=== PATIENT | female | born 1965 | race Hispanic/Latino ===

== ENCOUNTER 2021-01-09 16:52 | Emergency (ER) | payer OTHER ==
--- OUTSIDE RECORDS SUMMARY | 2021-01-09 16:56 | XMS REPORT | Continuity of Care Document ---
:1965 Author Organization [facility] t Address [address] [place] [address] Care Team Providers Name Role Phone Unavailable Unavailable Unavailable Payers Payer Name Policy Type Policy Number Effective Date Expiration Date S ource Problems This patient has no known problems. Allergies, Adverse Reactions, Alerts Allergy Allergy Status Severity Reaction(s) Onset Inactive Treating Comm ents Source Name Type Date Date Clinician No Known DA Active U [facility] Allergie 5-21 Clear s 00:00: Cruz 00 [facility] Medications This patient has no known medications. Procedures This patient has no known procedures. Results Test Description Test Time Test Comments Results Result [facility] corinne Comments UTERUS,OTHER THAN 2020-03-25 PROLAPSE/SHALONDA 09:11:00 --------RUN DATE: 03/26/20 [facility] PAGE 1 RUN TIME: 1833 Specimen Inquiry RUN USER: INTERFACE --------PATIENT: HAI LAZO LOC: YASMIN #: [id number] AGE/SX: 54/F ROOM: [facility] RE03/20/20REG DR: Caron Santos MD : 67 BED: A DIS: 03/21/20 STATUS: DIS [place] TLOC: -------- SPEC #: [id number] RECD: 03/20/20 STATUS: SOUKelley RE #: [id number] GHADA: 03/20/20- SUBM DR: Caron Santos MD ENTERED: 03/21/20 SP TYPE: UTERUSOTH OTHR DR: ORDERED: LEVEL V SURGICA CODES: R55940 - UTERUS, NOS PROCEDURES: LEVEL V SURGICA (Incomplete) TISSUES: UTERUS, NOS - UTERUS, CERVIX AND BILATERAL FALLOPIAN TUBES CLINICAL HISTORY 54 year old, abnormal uterine bleeding (kr) FINAL DIAGNOSIS Uterus, hysterectomy, cervix - Nabothian cysts endometrium - benign endometrial polyp myometrium - leiomyomas (3) serosa - no pathologic diagnosis fallopian tubes, bilateral - hydrosalpinx CPT code(s): 23749 cds/kr GROSS DESCRIPTION ANATOMIC SOURCE OF TISSUE (per Requisition): Uterus, cervix, bilateral tubes The specimen is received in formalin, labeled with the patient's name and designated "uterus, cervix, bilateral tubes". The specimen consists of a 610 gm, 18.0 x 15.0 x 9.0 cm supracervically amputated fragmented uterus with a detached cervix and detached fallopian tubes (5.5 and 6.5 cm in length). The uterine serosa is fuchs-pink and nodular. There are no adhesions. The 4.0 cm ectocervix displays a central 1.5 cm slit-like os. The endometrial cavity displays a 3.0 x 2.0 x 1.3 cm polypoid lesion. The cut surfaces are fuchs and homogeneous. There are no areas of hemorrhage, necrosis, or myometrial involvement. The remainder of the endometrium is fuchs and focally hemorrhagic with a thickness measuring up to 0.2 cm. The myometrium is trabeculated with a wall thickness measuring up to 4.0 cm. There are three well-circumscribed nodules, 0.5 to 9.5 cm. The cut surfaces are fuchs and whorled. CONTINUED ON NEXT PAGE --------RUN DATE: 03/26/20 [facility] PAGE 2 RUN TIME: 1833 Specimen Inquiry RUN USER: INTERFACE --------SPEC #: [id number] PATIENT: HAI LAZO #[id number] (Continued) GROSS DESCRIPTION (Continued) The fallopian tubes are pink-purple and hyperemic with a few adhesions. There is no definite fimbriae. The lumens are dilated and contains blood-tinged viscous fluid. The cut surfaces of the fallopian tube pathak are fuchs, firm, and thickened. Section code: A1 - cervix A2 and A3 - entire polyp A4 - anterior endomyometrium A5 - posterior endomyometrium A6 - two smaller nodules and senior human resources representative sections of short segment of fallopian tube A7 - senior human resources representative sections of large nodule and serosa with senior human resources representative sections of long segment of fallopian tube manoj 03/21/20 Signed Luis Jaquez 03/25/20 0911 -------- END OF REPORT CHEMISTRY 7 PROFILE 2020-03-21 05:43:00 Test Item Value Reference Range Interpretation Comme nts SODIUM (test code = NA) 143 mEq/L 135-145 N POTASSIUM (test code = K) 4.1 mEq/L 3.5-5.0 N CHLORIDE (test code = CL) 109 mEq/L 100-115 N CARBON DIOXIDE (test code = CO2) 26 mEq/L 22-31 N ANION GAP (test code = GAP) 11.80 10-20 N GLUCOSE (test code = GLU) 126 mg/dL 65-110 H BLOOD UREA NITROGEN (test code = BUN) 10 mg/dL 7-18 N GLOMERULAR FILTRATION RATE (test code = GFR) 58 ml/min >60 L CREATININE (test code = CREAT) 1.0 mg/dL 0.5-1.0 N CALCIUM (test code = CA) 8.2 mg/dL 8.4-10.2 L HGB [id number] 05:33:00 Test Item Value Reference Range Interpretation Comments HEMOGLOBIN (test code = HGB) 9.2 g/dL 10.7-13.9 L HEMATOCRIT (test code = HCT) 31.2 % 32.1-42.1 L Novel Coronavirus 2019 [id number] 06:10:00 Test Item Value Reference Range Interpretation Comments Novel Coronavirus 2019 Inhouse (test Negative Negative code = COVNONPUI) Novel Coronavirus 2019 [id number] 06:10:00 Test Item Value Reference Range Interpretation Comments Novel Coronavirus 2019 Inhouse (test Negative Negative code = COVNONPUI) CHEMISTRY 7 [id number] 14:36:00 Test Item Value Reference Range Interpretation Comments SODIUM (test code = NA) 143 mEq/L 135-145 N POTASSIUM (test code = K) 4.0 mEq/L 3.5-5.0 N CHLORIDE (test code = CL) 107 mEq/L 100-115 N CARBON DIOXIDE (test code = CO2) 25 mEq/L 22-31 N ANION GAP (test code = GAP) 14.80 10-20 N GLUCOSE (test code = GLU) 98 mg/dL 65-110 N BLOOD UREA NITROGEN (test code = 19 mg/dL 7-18 H BUN) GLOMERULAR FILTRATION RATE (test 65 ml/min >60 N code = GFR) CREATININE (test code = CREAT) 0.9 mg/dL 0.5-1.0 N CALCIUM (test code = CA) 8.7 mg/dL 8.4-10.2 N CBC W/AUTO [id number] 14:31:00 Test Item Value Reference Range Interpretation Comments WHITE BLOOD CELL (test code = WBC) 6.0 K/mm3 6.6-12.1 L RED BLOOD CELL (test code = RBC) 4.58 M/mm3 3.45-5.01 N HEMOGLOBIN (test code = HGB) 11.3 g/dL 10.7-13.9 N HEMATOCRIT (test code = HCT) 38.3 % 32.1-42.1 N MEAN CELL VOLUME (test code = MCV) 84 fL 84.1-94.8 L MEAN CELL HGB (test code = MCH) 24.7 pg 27-35 L MEAN CELL HGB CONCETRATION (test 29.5 gm/dL 32.2-34.1 L code = MCHC) RED CELL DISTRIBUTION WIDTH (test 17.0 % 12.4-16.5 H code = RDW) PLATELET COUNT (test code = PLT) 276 K/mm3 133-385 N MEAN PLATELET VOLUME (test code = 12.2 fl 9.1-12.7 N MPV) NEUTROPHIL % (test code = NT%) 64.7 % 56.5-79.4 N LYMPHOCYTE % (test code = LY%) 24.5 % 14.3-34.3 N MONOCYTE % (test code = MO%) 7.1 % 5.1-10.4 N EOSINOPHIL % (test code = EO%) 2.4 % 0.1-3.0 N BASOPHIL % (test code = BA%) 1.0 % 0.1-1.0 N NEUTROPHIL # (test code = NT#) 3.9 K/mm3 LYMPHOCYTE # (test code = LY#) 1.5 K/mm3 MONOCYTE # (test code = MO#) 0.4 K/mm3 EOSINOPHIL # (test code = EO#) 0.14 K/mm3 BASOPHIL # (test code = BA#) 0.1 K/mm3 RBC MORPHOLOGY REQUIRED (test code NORMAL NORMAL = RBCM) PLATELET MORPHOLOGY REQUIRED (test NORMAL NORMAL code = PLTMR) UR HCG [id number] 14:27:00 Test Item Value Reference Range Interpretation Comments UR HCG QUAL (test NEGATIVE 1. Very di lute urine code = HCGQLU) specimens, as indicated by a lowspecific g ravity, may not contain rep resentative levels ofhCG. 2 . False negative result s may occur when the levels of hCGare below the sensi tivity level of the test. If is still suspec pedro, a first morningurine sp ecimen should be colle cted 48 hours later and tested. CBC W/AUTO [id number] 10:14:00 Test Item Value Reference Range Interpretation Comments WHITE BLOOD CELL (test code 4.3 K/mm3 6.6-12.1 L = WBC) RED BLOOD CELL (test code = 3.69 M/mm3 3.45-5.01 N RBC) HEMOGLOBIN (test code = 8.9 g/dL 10.7-13.9 L HGB) HEMATOCRIT (test code = 31.1 % 32.1-42.1 L HCT) MEAN CELL VOLUME (test code 84 fL 84.1-94.8 L = MCV) MEAN CELL HGB (test code = 24.1 pg 27-35 L MCH) MEAN CELL HGB CONCETRATION 28.6 gm/dL 32.2-34.1 L (test code = MCHC) RED CELL DISTRIBUTION WIDTH 17.5 % 12.4-16.5 H (test code = RDW) PLATELET COUNT (test code = 292 K/mm3 133-385 N PLT) MEAN PLATELET VOLUME (test 11.1 fl 9.1-12.7 N code = MPV) NEUTROPHIL % (test code = 62.1 % 56.5-79.4 N NT%) LYMPHOCYTE % (test code = 25.5 % 14.3-34.3 N LY%) MONOCYTE % (test code = 8.9 % 5.1-10.4 N MO%) EOSINOPHIL % (test code = 2.1 % 0.1-3.0 N EO%) BASOPHIL % (test code = 0.9 % 0.1-1.0 N BA%) NEUTROPHIL # (test code = 2.7 K/mm3 NT#) LYMPHOCYTE # (test code = 1.1 K/mm3 LY#) MONOCYTE # (test code = 0.4 K/mm3 MO#) EOSINOPHIL # (test code = 0.09 K/mm3 EO#) BASOPHIL # (test code = 0.0 K/mm3 BA#) RBC MORPHOLOGY REQUIRED ABNORMAL NORMAL HYPO 2+ANISO 1+ (test code = RBCM) PLATELET MORPHOLOGY NORMAL NORMAL REQUIRED (test code = PLTMR)
[2021-01-09 18:28] LABS: Absolute Lymphocytes (CBC) 1.1 K/uL (0.7-4.9); Basophils % 0.6 % (0-1.3); Hematocrit 37.2 % (36.0-45.0); Lymphocytes % 14.3 % (15.3-44.8); MPV 8.3 fL (7.6-11.3); RBC Red Blood Cell Count 4.34 M/uL (3.86-4.86)
[2021-01-09 18:40] LABS: Potassium 3.8 mmol/L (3.5-5.1)
--- NOTE | 2021-01-09 19:34 | EDPHYS ---
Physician Documentation [facility] Name: Ranjana Leon Age: 55 yrs Sex: Female : 1965 Arrival Date: 01/09/2021 Time: 17:00 Bed 14 Private MD: ED Physician Lloyd Taylor HPI: 01/09 18:01 Onset: The symptoms/episode began/occurred gradually. Associated signs and symptoms: jr8 Pertinent positives: shortness of breath. Patient reports buttock implants with liposuction then driving back from [place]. She has BLE swelling with bruising. . 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 - Social history:: Smoking status: Patient denies any tobacco usage or history of. ROS: 18:02 Cardiovascular: Negative for chest pain, palpitations, and edema, Abdomen/GI: Negative jr8 for abdominal pain, nausea, vomiting, diarrhea, and constipation, Neuro: Negative for headache, weakness, numbness, tingling, and seizure. 18:02 Constitutional: Positive for fatigue. 18:02 Respiratory: Positive for shortness of breath. 18:02 Skin: Positive for hematoma, BLE. 2 STEVAN drains present . 19:31 All other systems are negative. jr8 19:35 Skin: Positive for jr8 19:35 All other systems are negative. Exam: 18:04 Cardiovascular: Regular rate and rhythm with a normal S1 and S2. No gallops, murmurs, jr8 or rubs. Normal PMI, no JVD. No pulse deficits. Respiratory: Lungs have equal breath sounds bilaterally, clear to auscultation and percussion. No rales, rhonchi or wheezes noted. No increased work of breathing, no retractions or nasal flaring. Abdomen/GI: Soft, non-tender, with normal bowel sounds. No distension or tympany. No guarding or rebound. No evidence of tenderness throughout. Neuro: Awake and alert, GCS 15, oriented to person, place, time, and situation. Cranial nerves II-XII grossly intact. Motor strength 5/5 in all extremities. Sensory grossly intact. Cerebellar exam normal. Normal gait. 18:04 Skin: Appearance: Color: pale, BLE swelling and hematoma. 19:35 Skin: 2 STEVAN drains presents with minimal serosanguinous drainage. jr8 Vital Signs: 17:09 BP 159 / 92; Pulse 99; Resp 16 S; Temp 97.6(TE); Pulse Ox 98% on R/A; Weight 63.5 kg ca1 (R); Height 5 ft. 3 in. (160.02 cm) (R); Pain 0/10; 17:09 Body Mass Index 24.80 (63.50 kg, 160.02 cm) ca1 MDM: 17:53 Patient medically screened. jr8 18:05 Data reviewed: vital signs, nurses notes, lab test result(s). Data interpreted: Cardiac jr8 monitor: rate is 99 beats/min, rhythm is regular, Pulse oximetry: on room air is 98 %. Interpretation: normal. 19:24 Counseling: I had a detailed discussion with the patient and/or guardian regarding: the jr8 historical points, exam findings, and any diagnostic results supporting the discharge/admit diagnosis, lab results, the need for outpatient follow up, a general surgeon, to return to the emergency department if symptoms worsen or persist or if there are any questions or concerns that arise at home. 19:31 ED course: Discussed with pt what to look for to return to ED: increase in SOB, jr8 increase in bright blood in large amounts from STEVAN drain or infection from STEVAN drain, leg pain. She wants to go back to [place] for STEVAN drain removal. Educated on on frequent stops and ambulation with trip. . 01/09 18:00 Order name: TS; Complete Time: 19:19 jr8 01/09 18:00 Order name: CBC with Diff; Complete Time: 18:47 jr8 01/09 18:00 Order name: Basic Metabolic Panel; Complete Time: 18:42 jr8 01/09 18:00 Order name: IV; Complete Time: 18:19 jr8 Administered Medications: No medications were administered Disposition: 01/10 19:28 Co-signature as Attending Physician, Lloyd Taylor MD I agree with the assessment and 4 plan of care. Disposition: 01/09/21 19:33 Discharged to Home. Impression: Post surgical ecchymoses . - Condition is Stable. - Discharge Instructions: Hematoma. - Medication Reconciliation Form, Thank You Letter, Antibiotic Education, Prescription Opioid Use form. - Follow up: Private Physician; When: 2 - 3 days; Reason: Recheck today's complaints, Continuance of care, Re-evaluation by your physician. - Problem is new. - Symptoms have improved. Addendum: 20:08 Addendum: CC: Leg bruising and dizziness . j r8 Signatures: Dispatcher [employer] EDMS Neymar Sorto PA PA jr8 Lloyd Taylor MD MD tw4 Simon Stout, RN RN mg2 Sharon Morin RN RN ca1 Corrections: (The following items were deleted from the chart) 01/09 19:50 19:33 01/09/2021 19:33 Discharged to Home. Impression: Post surgical ecchymoses . mg2 Condition is Stable. Forms are Medication Reconciliation Form, Thank You Letter, Antibiotic Education, Prescription Opioid Use. Follow up: Private Physician; When: 2 - 3 days; Reason: Recheck today's complaints, Continuance of care, Re-evaluation by your physician. Problem is new. Symptoms have improved. jr8
--- NOTE | 2021-01-09 19:34 | ER ---
Nurse's Notes [facility] Name: Ranjana Leon Age: 55 yrs Sex: Female : 1965 Arrival Date: 01/09/2021 Time: 17:00 Bed 14 Private MD: Diagnosis: Post surgical ecchymoses Presentation: 01/09 17:09 Chief complaint: Patient states: 01/03/2021 had Butt implants and liposuction on R and L ca1 thighs, and lower back. 2 days after drove myself back 5 hours from [place] to [place]. Reports bruising from thighs to the ankles, bruising is worse on the L side. Not so much swelling anymore, just bruising, and feet are always cold. I don't know when the bruising started though. Coronavirus screen: Client denies travel out of the [place] in the last 14 days. At this time, the client does not indicate any symptoms associated with coronavirus-19. Ebola Screen: Patient negative for fever greater than or equal to 101.5 degrees Fahrenheit, and additional compatible Ebola Virus Disease symptoms Patient denies exposure to infectious person. Patient denies travel to an Ebola-affected area in the 21 days before illness onset. No symptoms or risks identified at this time. Initial Sepsis Screen: Does the patient meet any 2 criteria? No. Patient's initial sepsis screen is negative. Does the patient have a suspected source of infection? No. Patient's initial sepsis screen is negative. Risk Assessment: Do you want to hurt yourself or someone else? Patient reports no desire to harm self or others. Onset of symptoms was January 09, 2021. 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 - Social history:: Smoking status: Patient denies any tobacco usage or history of. Screenin:00 Abuse screen: Denies threats or abuse. Denies injuries from another. Nutritional jl7 screening: No deficits noted. Tuberculosis screening: No symptoms or risk factors identified. Fall Risk IV access (20 points). Total Pradhan Fall Scale indicates No Risk (0-24 pts). Assessment: 18:00 General: Appears in no apparent distress. uncomfortable, Behavior is calm, cooperative, jl7 appropriate for age. Pain: Denies pain. Neuro: Level of Consciousness is awake, alert, obeys commands, Oriented to person, place, time, situation. Cardiovascular: Patient's skin is warm and dry. Respiratory: Airway is patent Respiratory effort is even, unlabored, Respiratory pattern is regular, symmetrical. Derm: Skin is dry, Skin is pale, Skin temperature is warm Bruising that is bright red, dark purple, on right leg and left leg. Vital Signs: 17:09 BP 159 / 92; Pulse 99; Resp 16 S; Temp 97.6(TE); Pulse Ox 98% on R/A; Weight 63.5 kg ca1 (R); Height 5 ft. 3 in. (160.02 cm) (R); Pain 0/10; 17:09 Body Mass Index 24.80 (63.50 kg, 160.02 cm) ca1 ED Course: 17:00 Patient arrived in ED. am2 17:14 Triage completed. ca1 17:16 Arm band placed on right wrist. ca1 17:52 Neymar Sorto PA is PHCP. jr8 17:53 Lloyd Taylor MD is Attending Physician. jr8 18:00 Patient has correct armband on for positive identification. Placed in gown. Bed in low jl7 position. Call light in reach. Side rails up X 1. 18:03 Casa Reis RN is Primary Nurse. jl7 18:20 Initial lab(s) drawn, by nh, sent to lab. T\T\S collected, blood band applied to patient. jl7 Inserted saline lock: 20 gauge in left hand, using aseptic technique. Blood collected. 19:49 No provider procedures requiring assistance completed. IV discontinued, intact, mg2 bleeding controlled, No redness/swelling at site. Pressure dressing applied. Administered Medications: No medications were administered Outcome: 19:33 Discharge ordered by . jr8 19:49 Discharged to home ambulatory. mg2 19:49 Condition: stable 19:49 Discharge instructions given to patient, Instructed on discharge instructions, follow up and referral plans. Demonstrated understanding of instructions, follow-up care. 19:50 Patient left the ED. mg2 Signatures: Neymar Sorto PA PA jr8 Casa Reis RN RN jl7 Ally Faith Michele, RN RN mg2 Sharon Morin RN RN ca1 Corrections: (The following items were deleted from the chart) 17:18 17:09 Acuity: LEONARD 4 ca1 ca1
[2021-01-09 20:04] VITALS: BP 159/92; TEMP 97.6; O2SAT 98
== END 2021-01-09 19:50 | disposition home or self-care (01) ==
LOC: ER 16:52
DX: R23.3 Spontaneous ecchymoses (principal); Z98.890 Other specified postprocedural states
CPT/HCPCS: 36415; 80048; 85025; 86850; 86900; 86901; 99283